=== PATIENT | female | born 1955 | race Caucasian/White ===

== ENCOUNTER 2018-12-09 06:08 | Inpatient (IN) ==
--- NOTE | 2018-11-19 13:44 | PAT Medication Instructions ---
Medication Instructions Date of Service November 19, 2018 Home Medications Cbd Oil 1,000 mg SUBLINGUAL BID ascorbic acid (vitamin C) [Vitamin C] 1 g PO DAILY aspirin 81 mg PO DAILY calcium carbonate-vitamin D3 [Calcium 600 + D(3)] 1 cap PO DAILY cyanocobalamin (vitamin B-12) 5,000 mcg PO DAILY gabapentin 600 mg PO Q4H PRN ibuprofen 800 mg PO TID PRN multivitamin 1 tab PO DAILY ondansetron 8 mg PO Q12H PRN pantoprazole [Protonix] 40 mg PO QAM potassium 99 mg PO DAILY propranolol 10 mg PO TID pyridoxine (vitamin B6) [Vitamin B-6] 25 mg PO DAILY tramadol [Ultram] 50 mg PO Q6H PRN ASK your surgeon for instructions ibuprofen 800 mg PO TID PRN DO NOT take the morning of surgery Cbd Oil 1,000 mg SUBLINGUAL BID ascorbic acid (vitamin C) [Vitamin C] 1 g PO DAILY calcium carbonate-vitamin D3 [Calcium 600 + D(3)] 1 cap PO DAILY cyanocobalamin (vitamin B-12) 5,000 mcg PO DAILY multivitamin 1 tab PO DAILY potassium 99 mg PO DAILY pyridoxine (vitamin B6) [Vitamin B-6] 25 mg PO DAILY Take morning of surgery With a small sip of water, OTHERWISE NOTHING TO EAT OR DRINK AFTER MIDNIGHT: aspirin 81 mg PO DAILY gabapentin 600 mg PO Q4H PRN (if needed) ondansetron 8 mg PO Q12H PRN (if needed) pantoprazole [Protonix] 40 mg PO QAM propranolol 10 mg PO TID tramadol [Ultram] 50 mg PO Q6H PRN (okay to take up to 4 hours prior to surgery if needed) Take evening before surgery Cbd Oil 1,000 mg SUBLINGUAL BID gabapentin 600 mg PO Q4H PRN (if needed) ondansetron 8 mg PO Q12H PRN (if needed) propranolol 10 mg PO TID tramadol [Ultram] 50 mg PO Q6H PRN (if needed) Other Notes If you have any questions please call us at [phone] or [phone] or [phone] or [phone]
--- NOTE | 2018-11-19 13:49 | Anesthesiology Consultation ---
Date of Service November 19, 2018 Assessment & Plan (1) Encounter for pre-operative examination: Preop EKG done 11/19/18 still unconfirmed at time of review. Will need to review confirmed EKG AM DOS. Chart Review Chart Review: Acceptable Risk for Surgery and Patient seen in Pre Admission Testing Teaching & Discussion Pre-Anesthesia Teaching/Discussion Notes: Instructed NPO after midnight before surgery,except medications with 15 cc of water. Medication instructions provid ed according to the PAT guidelines. History Surgery Operation Date: 12/09/18 07:45 Proposed Procedures p L3-S1 Decompression and Fusion with Spinal Cord Monitoring - Juan Manuel Gordon, Height/Weight Height: 5 ft 2 in Weight: 116.4 kg Allergies Allergy/AdvReac Type Severity Reaction Status Date / Time codeine Allergy Severe Anaphylaxis Verified 11/14/18 13:18 Medications Home Medications Medication Instructions Recorded Confirmed Last Taken Cbd Oil 1,000 mg SUBLINGUAL BID 11/14/18 11/14/18 Unknown ascorbic acid (vitamin C) [Vitamin 1 g PO DAILY 11/14/18 11/14/18 Unknown C] aspirin 81 mg PO DAILY 11/14/18 11/14/18 Unknown calcium carbonate-vitamin D3 1 cap PO DAILY 11/14/18 11/14/18 Unknown [Calcium 600 + D(3)] cyanocobalamin (vitamin B-12) 5,000 mcg PO DAILY 11/14/18 11/14/18 Unknown gabapentin 600 mg PO Q4H PRN 11/14/18 11/14/18 Unknown ibuprofen 800 mg PO TID PRN 11/14/18 11/14/18 Unknown multivitamin 1 tab PO DAILY 11/14/18 11/14/18 Unknown ondansetron 8 mg PO Q12H PRN 11/14/18 11/14/18 Unknown pantoprazole [Protonix] 40 mg PO QAM 11/14/18 11/14/18 Unknown potassium 99 mg PO DAILY 11/14/18 11/14/18 Unknown propranolol 10 mg PO TID 11/14/18 11/14/18 Unknown pyridoxine (vitamin B6) [Vitamin 25 mg PO DAILY 11/14/18 11/14/18 Unknown B-6] tramadol [Ultram] 50 mg PO Q6H PRN 11/14/18 11/14/18 Unknown Past Medical History Medical History Asthma STABLE Degenerative disc disease GERD (gastroesophageal reflux disease) CONTROLLED Migraine Morbid obesity Osteoarthritis Peripheral neuropathy Exercise / Class Metabolic Activity III < 4 Walking/Shop/Light housework Past Family History Family History Other No significant family history Past Surgical History Surgical History H/O hand surgery RT THUMB AND WRIST "ARTHROPLASTY" History of cataract surgery RT/LEFT History of section X 3 History of cholecystectomy History of hysterectomy History of tonsillectomy History of total knee replacement RT/LEFT History of vitrectomy RT Hx of eye surgery LASER RT/LEFT EYE "BLEEDING IN THE EYE" Tumor REMOVED FROM BACK (BENIGN) Past Anesthesia History No Hx of Anesthesia Complications and No Family Hx of Anesthesia Complications History of PONV No Hx of PONV and Hx of Motion Sickness Social History Smoking Status: Never smoker Do You Dip or Chew Tobacco: No Hx Alcohol Use: No Hx Substance Use: Yes (CBD oil sublingual BID) Review of Systems Reflux controlled. LBP with occasional LE radiculopathy/neuropathy. Patient denies chest pain, shortness of breath, cough, wheezing, palpitations. Physical Exam Vital Signs VITALS BP P 74 TEMP 98.2 SP02 95%RA RESP 20 PHYSICAL Full neck and c-spine range of motion. Full TMJ range of motion. TMD 3 finger breaths Mallampati Score 2 Dentition: upper front left missing tooth Lungs: clear throughout to auscultation Cardiac: regular rate and rhythm, no murmurs noted Spine: normal Carotid arteries: negative bruit Extremities: no edema Testing Laboratory Results 11/19/18 14:14 11/19/18 14:16 PT 9.8 Seconds (9.0-12.0) 11/19/18 14:14 INR 1.0 (0.9-1.1) 11/19/18 14:14 APTT 28.6 Seconds (21.0-31.0) 11/19/18 14:14 Urine Color Yellow 11/19/18 Unknown Urine Appearance Clear (Clear) 11/19/18 Unknown Urine pH 5.0 (4.5-7.5) 11/19/18 Unknown Ur Specific [place] 1.027 (1.000-1.030) 11/19/18 Unknown Urine Protein Negative (Negative) 11/19/18 Unknown Urine Glucose (UA) Negative (Negative) 11/19/18 Unknown Urine Ketones Negative (Negative) 11/19/18 Unknown Urine Nitrite Negative (Negative) 11/19/18 Unknown Ur Leukocyte Esterase Negative (Negative) 11/19/18 Unknown Urine WBC (Auto) 1-5 /hpf (0-5) 11/19/18 Unknown Urine RBC (Auto) >30 /hpf (0-4) H 11/19/18 Unknown U Hyaline Cast (Auto) 0 /lpf (0-5) 11/19/18 Unknown U Epithel Cells (Auto) >30 /lpf (0-5) H 11/19/18 Unknown Urine Bacteria (Auto) Negative (Negative) 11/19/18 Unknown Blood Type O Positive 11/19/18 14:14 Antibody Screen NEGATIVE 11/19/18 14:14 11/19/18 Unknown Urine Culture - Final Urine,Clean Catch More than three types of organisms present, all high counts mixed probable skin lindsey - No further identifications or sensitivities to follow. Electrocardiogram Date: 11/19/18 SR with first degree AVB at 78bpm. Otherwise "normal" EKG. (unconfirmed). Chest X-Ray Date: 11/19/18 Findings: + NAD
--- NOTE | 2018-11-19 14:49 | XRay Report ---
XR chest Pre-admission PA/Lat CLINICAL HISTORY: Preoperative evaluation. COMPARISON STUDY: No previous studies for comparison. FINDINGS: Lung volumes are normal. Lungs are clear. There is no pneumothorax or pleural effusion. Car diac size is normal. Mediastinal contours are normal. There is no evidence for pulmonary edema. IMPRESSION: No acute cardiopulmonary findings. Electronically signed by: Ronak Nichols M.D. 11/19/2018 2:48 PM
[2018-11-19 15:36] LABS: Basophils # (auto) 0.03 K/uL (0-0.2); Basophils % (auto) 0.4 %; Eosinophils # (auto) 0.11 K/uL (0-0.5); Eosinophils % (auto) 1.6 %; Hematocrit (blood only) 41.2 % (37-47); Hemoglobin 13.7 g/dL (12.0-16.0); Lymphocytes # (auto) 2.52 K/uL (1.2-3.4); Lymphocytes % (auto) 35.9 %; Mean Corpuscular Hgb Conc 33.3 g/dL (32-36); Mean Corpuscular Volume 90.2 fL (80-100); Mean Platelet Volume 10.7 fL (7.4-10.4); Monocytes # (auto) 0.52 K/uL (0.11-0.59); Monocytes % (auto) 7.4 %; Neutrophils # (auto) 3.83 K/uL (1.4-6.5); Neutrophils % (auto) 54.7 %; Platelet Count 245 K/uL (130-400); RDW Coefficient of Variation 14.2 % (11.5-14.5); RDW Standard Deviation 46.6 fL (36.4-46.3); Red Blood Count 4.57 M/uL (4.2-5.4); White Blood Count 7.01 K/uL (4.8-10.8)
[2018-11-19 15:45] LABS: BUN Creatinine Ratio 40.2 (10-20); Calcium 9.3 mg/dl (8.5-10.1); Creatinine Clr Calc Pharmacy 115.3 ml/min; Est GFR (African American) 112.8; Est GFR (Non-African American) 97.3; Potassium 4.2 mmol/L (3.5-5.1)
[2018-11-19 15:49] LABS: Partial Thromboplastin Ratio 1.1; Partial Thromboplastin Time 28.6 Seconds (21.0-31.0); Prothrombin Time 9.8 Seconds (9.0-12.0)
[2018-11-19 15:51] LABS: Appearance Urine Clear (Clear); Bacteria Urine Automated Negative (Negative); Bilirubin Urine Negative (Negative); Blood Urine 2+ (Negative); Cast Urine Automated 0 /lpf (0-5); Color Urine Yellow; Epithelial Cell Urine Auto >30 /lpf (0-5); Glucose Urine UA Negative (Negative); Ketones Urine Negative (Negative); Leukocyte Esterase Urine Negative (Negative); Nitrite Urine Negative (Negative); Protein Urine Negative (Negative); RBC Urine Automated >30 /hpf (0-4); Specific Gravity Urine 1.027 (1.000-1.030); Urobilinogen Urine Negative (Negative)
[~2018-12-09 06:08] MED LIST: ACETAMINOPHEN 500 MG TAB PO SCH; CEFAZOLIN 2000MG 2,000 MG/15 ML SYR IV SCH; CeleBREX 200 MG CAP PO SCH; GABAPENTIN 600 MG DOSE PO SCH; LR 15ML/HR IV SCH
[2018-12-09] MEDS ORDERED: BUPIVACAINE/EPINEPHRINE 0.5% MPF 1:200,000 30 ML VIAL ONE (06:56)
[2018-12-09] MEDS ORDERED: BACITRACIN INJ 50,000 UNIT VIAL ONE (06:57)
[2018-12-09] MEDS ORDERED: MIDAZOLAM HCL 1 MG/ML 2ML VIAL ONE (06:58)
[2018-12-09] MEDS ORDERED: LIDOCAINE HCL 2% 2 ML VIAL/AMP(20MG/ML) INFIL ONE (06:58)
[2018-12-09] MEDS ORDERED: GLYCOPYRROLATE 0.2 MG/ML VIAL ONE (06:58)
[2018-12-09] MEDS ORDERED: ONDANSETRON INJ 2 MG/ML 2 ML VIAL ONE (06:58)
[2018-12-09] MEDS ORDERED: DEXAMETHASONE SOD INJ 4 MG/ML VIAL ONE ×2 (06:58→08:12)
[2018-12-09] MEDS ORDERED: PROPOFOL IV EMULSION 10 MG/ML 20 ML VIAL IV ONE (06:58)
[2018-12-09] MEDS ORDERED: NEOSTIGMINE METHYLSULFATE 1 MG/ML 10ML VIAL ONE (06:58)
[2018-12-09] MEDS ORDERED: fentaNYL citrate 100 MCG/2 ML VIAL ONE (06:59)
[2018-12-09] MEDS ORDERED: LABETALOL HCL IV 5 MG/ML 20ML IV PRN (07:01)
[2018-12-09] MEDS ORDERED: ALBUTEROL 0.083% NEBU SOLN 3 ML VIAL INH PRN (07:01)
[2018-12-09] MEDS ORDERED: PROMETHAZINE HCL 12.5 MG in SODIUM CHLORIDE 0.9% 50 ML IV PRN ×2 (07:01→12:47)
[2018-12-09] MEDS ORDERED: ATROPINE SULFATE 0.1 MG/ML 10ML SYR IV PRN (07:01)
[2018-12-09] MEDS ORDERED: ONDANSETRON INJ 2 MG/ML 2 ML VIAL IV PRN (07:01)
--- NOTE | 2018-12-09 07:28 | History & Physical Bridge Note ---
Date of Service December 09, 2018 History & Physical Bridge Note I have examined the patient, reviewed the History & Physical and in the interval since the performance of the History & Physical I have noted the following changes of clinical significance: no changes noted
--- NOTE | 2018-12-09 07:30 | History & Physical Report ---
Date of Service December 09, 2018 Assessment & Plan (1) Spinal stenosis, lumbar region with neurogenic claudication: L3-S1 decompression and fusion Present on Admission?: Yes History of Present Illness Chief Complaint: Back and leg pain Primary Care Provider: Kristy Mueller This is a 63-year-old female who presents with chronic persistent back and leg pain. After failing extensive course of nonoperative care is here for surgical intervention. Allergies Allergy/AdvReac Type Severity Reaction Status Date / Time codeine Allergy Severe Anaphylaxis Verified 12/09/18 06:52 diclofenac [From [place]] Allergy Severe Palpitation Verified 12/09/18 06:56 s Home Medications Home Medications Medication Instructions Recorded Confirmed Type Cbd Oil 1,000 mg SUBLINGUAL BID 11/14/18 12/09/18 History ascorbic acid (vitamin C) [Vitamin 1 g PO DAILY 11/14/18 12/09/18 History C] aspirin 81 mg PO DAILY 11/14/18 12/09/18 History calcium carbonate-vitamin D3 1 cap PO DAILY 11/14/18 12/09/18 History [Calcium 600 + D(3)] cyanocobalamin (vitamin B-12) 5,000 mcg PO DAILY 11/14/18 12/09/18 History gabapentin 600 mg PO Q4H PRN 11/14/18 12/09/18 History ibuprofen 800 mg PO TID PRN 11/14/18 12/09/18 History multivitamin 1 tab PO DAILY 11/14/18 12/09/18 History ondansetron 8 mg PO Q12H PRN 11/14/18 12/09/18 History pantoprazole [Protonix] 40 mg PO QAM 11/14/18 12/09/18 History potassium 99 mg PO DAILY 11/14/18 12/09/18 History propranolol 10 mg PO TID 11/14/18 12/09/18 History pyridoxine (vitamin B6) [Vitamin 25 mg PO DAILY 11/14/18 12/09/18 History B-6] tramadol [Ultram] 50 mg PO Q6H PRN 11/14/18 12/09/18 History Past Med/Surg History Medical History Asthma STABLE Degenerative disc disease GERD (gastroesophageal reflux disease) CONTROLLED Migraine Morbid obesity Osteoarthritis Peripheral neuropathy Surgical History H/O hand surgery RT THUMB AND WRIST "ARTHROPLASTY" History of cataract surgery RT/LEFT History of section X 3 History of cholecystectomy History of hysterectomy History of tonsillectomy History of total knee replacement RT/LEFT History of vitrectomy RT Hx of eye surgery LASER RT/LEFT EYE "BLEEDING IN THE EYE" Tumor REMOVED FROM BACK (BENIGN) Family History Other No significant family history Social History Preferred Language: Luxembourgish Communication Ability: Effective Agricultural Scientist Required: No Beliefs That Will Affect Care: None Current Living Situation: Spouse Other Information That Helps Us Care for You: No Feels Safe at Home: Yes Safety Concerns: Feels Safe At This Time Smoking Status: Never smoker Do You Dip or Chew Tobacco: No Second Hand Exposure: No Tobacco Cessation Education Requested by Patient: No Hx Alcohol Use: No Hx Substance Use: Yes (CBD oil sublingual BID) substance use type: does not use Physical Exam Physical Exam: Patient is alert and oriented neurologically intact. Results & Data Vital Signs (Past 12 Hours) Vital Signs Temp Pulse Resp BP Pulse Ox 12/09/18 06:57 36.5 C 73 20 152/99 H 94
[2018-12-09] MEDS ORDERED: HYDROmorphone INJ 2 MG/ML SYR/VIAL ONE (08:13)
[2018-12-09] MEDS ORDERED: ePHEDrine sulfate 50 MG/ML SYR ONE (08:27)
[2018-12-09] MEDS ORDERED: PHENYLEPHRINE 100MCG/ML 5ML SYR ONE (08:27)
[2018-12-09] MEDS ORDERED: ROCURONIUM BROMIDE 10 MG/ML 5 ML VIAL ONE (08:49)
[2018-12-09] MEDS ORDERED: FLOSEAL HEMOSTATIC MATRIX 10ML TOP ONE (08:51)
[2018-12-09] MEDS ORDERED: ALBUMIN HUMAN 5% 12.5 GM/250 ML VIAL IV ONE (09:42)
--- NOTE | 2018-12-09 10:32 | Operative Report ---
Post Operative Report Pre & Post Diagnosis Operation Date: 12/09/18 07:45 Pre-Op Diagnosis: Spinal stenosis, lumbar region with neurogenic claudication Spondylolisthesis L4-5 L5-S1 Morbid obesity Post-Op Diagnosis: Same Procedure Operation Date: 12/09/18 07:45 Actual Procedures #1 lumbar decompression with bilateral medial facetectomies foraminotomies L2-3 L3-4 L4-5 L5-S1. #2 posterior spinal fusion L3-4 L4-5 L5-S1. #3 placement of posterior segmental instrumentation L3-4 L4-5 L5-S1. #4 interbody fusion L3-4 L4-5. #5 placement of titanium 12 x 22 mm cage at L3-4 and 10 x 22 mm cage at L4-5 per #6 placement of local autograft in the posterior lateral gutters. #7 placement infuse collagen sponge, master graft in the posterior gutters and ostial amp in the interbody space. Surgeon Juan Manuel Gordon, Assembler Surgical [employer]ment Dionne Leone Estimated Blood Loss 250 Findings See Below Patient is 5 foot 2 inches tall weighing 118 kg with a BMI excess of 47. The patient's body habitus added significant technical difficulty throughout the procedure requiring our largest retractors and longus instrumentations to perform the surgery. This added at least an additional 50% of operative time. Specimens None Indications This is a 63-year-old female that presents with above-mentioned diagnosis after failing extensive course of nonoperative care she like to undergo the above- mentioned procedure. Description of Procedure The patient was met with identified and informed consent obtained. She was then taken to the operative suite underwent intubation placed in the supine position the Tod table on top of the Luke frame. All bony prominences well-padded eyes inspected to ensure no external pressure placed upon the peer at this point the lumbar spine was prepped and draped in the normal sterile fashion. Sharp dissection with the assistance of Bovie cautery was performed down to and exposing the lamina and transverse processes of L3-L4-L5 and the sacral ala bilaterally. Obvious instability was noted. Then performed a complete laminectomy of L5 L4 L3 and partial laminectomy of L2 including bilateral medial facetectomies and foraminotomies addressing severe spinal stenosis. Pedicle screws were then placed in L3-L4-L5 and the sacral ala bilaterally. The appropriate size lot contoured and placed. By way of a transforaminal approach and left complete discectomy of L4-5 was performed in plate graded to subcortical being bone and a 10 x 22 mm titanium cage filled with ostium bone graft tapped in position. Then proceeded to L3-[address] of a transforaminal approach on the left complete discectomy performed in plate graded to subcortical bleeding bone and a 12 x 22 mm titanium cage filled with ostium bone graft tapped in position. The rods were then locked in final position. The transverse processes of L3-L4-L5 and the sacral ala bur to subcor tical bleeding bone. Infuse collagen sponge master graft local autograft placed in the posterior lateral gutters. 15 round SALTY drain inserted. The incision was then closed with 1 Vicryl fascia 2-0 Vicryl subcutaneous and 4 Monocryl for final skin closure. Steri-Strip sterile dressing placed. Patient will continue to PACU stable condition. Please note Dionne Leone present at the entire procedure involved in patient positioning complex portions of the surgery and final skin closure. Lastly spinal cord monitoring was utilized throughout the procedure no changes noted. I attest to the content of the Intraoperative Record and any orders documented therein. Any exceptions are noted below.
--- NOTE | 2018-12-09 10:35 | Fluoroscopy Report ---
FL lumbar spine 2-3V CLINICAL HISTORY: L3-S1 LUMBAR DECOMPRESSION AND FUSION COMPARISON STUDY: FLUOROSCOPY TIME: 35 seconds. NUMBER OF FLUOROSCOPIC IMAGES: 2 FINDINGS: 2 intraoperative fluoroscopic spot images reveal postsurgical changes of L3-4 and L4-5 disc ectomies and interbody fusions. There is an L3-S1 spinal fusion with posterior pedicle screw fixation . There is a grade 1 spondylolisthesis of L4 and L5 IMPRESSION: Intraoperative fluoroscopic spot images demonstrating postsurgical changes as described above Electronically signed by: James Rodriguez M.D. 12/09/2018 10:34 AM
[2018-12-09 10:38] LABS: iSTAT Creatinine 0.6 mg/dl (0.6-1.3); iSTAT Hemoglobin 11.6 g/dl (12.0-16.0); iSTAT Ionized Calcium 1.18 mmol/l (1.12-1.32); iSTAT Potassium 4.2 mEq/L (3.3-5.0)
[2018-12-09] MEDS: HYDROmorphone INJ 1 MG/ML SYRINGE IV PRN ×12 (11:06→12:03)
--- NOTE | 2018-12-09 12:14 | Anesthesiology Progress Note ---
Date of Service December 09, 2018 Anesthesia Post Procedure Vital Signs Vital Signs: Temp Pulse Pulse Resp BP Pulse Ox 12/09/18 12:05 74 16 126/79 96 12/09/18 11:55 36.4 C L 70 16 99/71 L 94 12/09/18 11:45 67 16 107/77 94 12/09/18 11:35 66 16 129/79 94 12/09/18 11:25 69 16 130/80 93 12/09/18 11:15 63 16 120/81 92 12/09/18 11:05 63 16 125/75 92 12/09/18 10:58 36.2 C L 63 16 137/80 95 12/09/18 06:57 36.5 C 73 20 152/99 H 94 Pain Intensity Lower Back: Pain Intensity: 6 Transfer of Care Handoff Completed per policy Notes Mental Status: alert / awake / arousable Patient Amnestic to Procedure: Yes Nausea / Vomiting: adequately controlled Pain: adequately controlled Airway Patency, RR, SpO2: stable & adequate BP & HR: stable & adequate Hydration State: stable & adequate Anesthetic Complications: no major complications apparent
[2018-12-09] MEDS ORDERED: SOD PHOSPHATE/SOD BIPHOSPHATE ENEMA 132 ML BTL PR PRN (12:47)
[2018-12-09] MEDS ORDERED: DO NOT ADMINISTER FLU VACCINE PRN (12:47)
[2018-12-09] MEDS ORDERED: BISACODYL 10 MG SUPP PR PRN (12:47)
[2018-12-09] MEDS ORDERED: MAGNESIUM HYDROXIDE SUSP 30 ML UDC PO PRN (12:47)
[2018-12-09] MEDS ORDERED: FAMOTIDINE 20 MG TAB PO PRN (12:47)
[2018-12-09] MEDS ORDERED: TRAMADOL HCL 50 MG TABLET PO PRN (12:47)
[2018-12-09] MEDS ORDERED: DO NOT ADMINISTER PNEUMOCOCCAL VACCINE PRN (12:47)
[2018-12-09] MEDS ORDERED: LORazepam 0.5 MG TAB PO PRN (12:47)
[2018-12-09] MEDS ORDERED: LORazepam 0.5 MG/1 ML VIAL IV PRN (12:47)
[2018-12-09] MEDS ORDERED: ACETAMINOPHEN 1,000 MG/100 ML VIAL IV PRN (12:47)
[2018-12-09] MEDS ORDERED: METOCLOPRAMIDE HCL INJ 5 MG/ML 2 ML VIAL IV PRN (12:47)
[2018-12-09] MEDS ORDERED: ALUMINUM/MAGNESIUM SUSP 30 ML UDC PO PRN (12:47)
[2018-12-09] MEDS: HYDROmorphone INJ 0.5 MG/0.5 ML SYR IV PRN ×3 (13:38→23:57)
[2018-12-09] MEDS: LACTATED RINGER'S 1,000 ML IV SCH ×2 (13:38→20:32)
[2018-12-09] MEDS: PROPRANOLOL HCL 10 MG TAB PO SCH ×2 (14:33→20:34)
[2018-12-09] MEDS: OXYCODONE HCL IR 5 MG TAB (IMMEDIATE RELEASE) PO PRN ×2 (15:53→21:21)
[2018-12-09] MEDS: CEFAZOLIN 2000MG 2,000 MG/15 ML SYR IV SCH ×2 (15:54→23:58)
[2018-12-09] MEDS: ONDANSETRON INJ 2 MG/ML 2 ML VIAL IV PRN (19:35)
[2018-12-09] MEDS: MEDICAL MARIJUANA PO SCH (20:34)
[2018-12-09] MEDS: DOCUSATE SODIUM/SENNA 50/8.6MG TAB PO SCH (20:34)
[2018-12-10] MEDS: LACTATED RINGER'S 1,000 ML IV SCH (02:27)
[2018-12-10] MEDS: ONDANSETRON INJ 2 MG/ML 2 ML VIAL IV PRN (02:27)
[2018-12-10] MEDS: POLYETHYLENE (MIRALAX) 17 GM PACK PO SCH ×4 (06:01→23:26)
[2018-12-10] MEDS: OXYCODONE HCL IR 5 MG TAB (IMMEDIATE RELEASE) PO PRN ×4 (06:05→21:16)
[2018-12-10 06:17] LABS: Basophils # (auto) 0.01 K/uL (0-0.2); Basophils % (auto) 0.1 %; Hematocrit (blood only) 30.9 % (37-47); Hemoglobin 10.2 g/dL (12.0-16.0); Immature Granulocytes # (auto) 0.04 K/uL (0.00-0.02); Immature Granulocytes % (auto) 0.3 %; Lymphocytes # (auto) 1.22 K/uL (1.2-3.4); Lymphocytes % (auto) 10.3 %; Mean Corpuscular Volume 90.4 fL (80-100); Mean Platelet Volume 10.1 fL (7.4-10.4); Monocytes # (auto) 0.75 K/uL (0.11-0.59); Monocytes % (auto) 6.4 %; Neutrophils # (auto) 9.78 K/uL (1.4-6.5); Neutrophils % (auto) 82.9 %; Platelet Count 243 K/uL (130-400); RDW Coefficient of Variation 14.5 % (11.5-14.5); RDW Standard Deviation 47.8 fL (36.4-46.3); Red Blood Count 3.42 M/uL (4.2-5.4)
[2018-12-10 06:46] LABS: BUN Creatinine Ratio 24.5 (10-20); Calcium 8.2 mg/dl (8.5-10.1); Est GFR (African American) 112.6; Est GFR (Non-African American) 97.2; Potassium 4.1 mmol/L (3.5-5.1)
--- NOTE | 2018-12-10 07:49 | Anesthesiology Progress Note ---
Date of Service December 10, 2018 Anesthesia Post Procedure Vital Signs Vital Signs: Temp Pulse Pulse Resp BP Pulse Ox 12/10/18 03:15 36.9 C 84 18 136/69 93 12/09/18 23:15 36.9 C 82 16 115/70 94 12/09/18 21:24 82 91 12/09/18 21:23 87 L 12/09/18 19:28 36.7 C 82 18 106/68 94 12/09/18 15:39 36.3 C L 72 16 101/66 92 12/09/18 14:31 36.4 C L 80 18 104/68 92 12/09/18 13:34 36.3 C L 62 17 100/64 96 12/09/18 13:00 36.4 C L 79 18 123/77 97 12/09/18 12:35 36.5 C 77 16 134/74 96 12/09/18 12:25 36.4 C L 71 16 127/71 96 12/09/18 12:15 36.4 C L 72 16 124/73 96 12/09/18 12:05 74 16 126/79 96 12/09/18 11:55 36.4 C L 70 16 99/71 L 94 12/09/18 11:45 67 16 107/77 94 12/09/18 11:35 66 16 129/79 94 12/09/18 11:25 69 16 130/80 93 12/09/18 11:15 63 16 120/81 92 12/09/18 11:05 63 16 125/75 92 12/09/18 10:58 36.2 C L 63 16 137/80 95 Pain Intensity Lower Back: Pain Intensity: 9 Notes Mental Status: alert / awake / arousable and participated in evaluation Patient Amnestic to Procedure: Yes Nausea / Vomiting: adequately controlled Pain: adequately controlled Airway Patency, RR, SpO2: stable & adequate BP & HR: stable & adequate Hydration State: stable & adequate Anesthetic Complications: no major complications apparent and Pt Satisfied with anesthetic care
[2018-12-10] MEDS: PROPRANOLOL HCL 10 MG TAB PO SCH ×3 (08:29→21:17)
[2018-12-10] MEDS: MEDICAL MARIJUANA PO SCH ×2 (08:40→21:19)
[2018-12-10] MEDS ORDERED: PANTOprazole 40 MG TAB PO SCH (09:00)
[2018-12-10] MEDS ORDERED: NON-FORMULARY MEDICATION (Potassium 99 MG) PO SCH (09:00)
[2018-12-10] MEDS: HYDROmorphone INJ 0.5 MG/0.5 ML SYR IV PRN (09:21)
[2018-12-10] MEDS: ASPIRIN 81 MG ECTAB PO SCH (09:23)
[2018-12-10] MEDS: ASCORBIC ACID 500 MG TAB PO SCH (09:23)
[2018-12-10] MEDS: PYRIDOXINE HCL 50 MG TAB PO SCH (09:23)
[2018-12-10] MEDS: CYANOCOBALAMIN (VITAMIN B-12) 2,500 MCG TAB.SUBL SL SCH (09:24)
[2018-12-10] MEDS: CALCIUM 600MG + VIT D 400 IU TAB PO SCH (09:24)
[2018-12-10] MEDS: MULTIVITAMIN TAB PO SCH (09:24)
--- NOTE | 2018-12-10 13:01 | Orthopedic Progress Note ---
Date of Service December 10, 2018 Assessment & Plan (1) Spinal stenosis, lumbar region with neurogenic claudication: This time we will continue to monitor her SALTY output and encourage physical therapy assess her progress of the next few days hopefully discharge home by the end of the week. Present on Admission?: Yes Subjective Patient's complaining of some back pain leg burning but improved from her pr eoperative status. Physical Exam Physical Exam: On exam she is in a chair. She is comfortable. [facility] testing. Results & Data Vital Signs (Past 12 Hours) Vital Signs Temp Pulse Resp BP Pulse Ox 12/10/18 11:50 36.7 C 79 18 129/76 95 12/10/18 08:33 36.7 C 87 18 112/72 94 12/10/18 07:27 93 12/10/18 03:15 36.9 C 84 18 136/69 93
[2018-12-10] MEDS: GABAPENTIN 600 MG TAB PO PRN ×3 (13:56→23:54)
[2018-12-10] MEDS: ACETAMINOPHEN 500 MG TAB PO PRN (13:56)
[2018-12-10] MEDS: DOCUSATE SODIUM/SENNA 50/8.6MG TAB PO SCH (21:17)
[2018-12-11] MEDS: LACTATED RINGER'S 1,000 ML IV SCH (00:22)
[2018-12-11] MEDS: OXYCODONE HCL IR 5 MG TAB (IMMEDIATE RELEASE) PO PRN ×5 (02:56→21:02)
[2018-12-11] MEDS: ACETAMINOPHEN 500 MG TAB PO PRN ×2 (02:56→13:49)
[2018-12-11] MEDS: PANTOprazole 40 MG TAB PO SCH (06:02)
[2018-12-11] MEDS: POLYETHYLENE (MIRALAX) 17 GM PACK PO SCH ×4 (06:03→23:21)
[2018-12-11] MEDS: PROPRANOLOL HCL 10 MG TAB PO SCH ×3 (06:03→21:02)
[2018-12-11] MEDS: GABAPENTIN 600 MG TAB PO PRN ×4 (06:07→22:43)
[2018-12-11] MEDS: MEDICAL MARIJUANA PO SCH ×2 (07:43→21:04)
[2018-12-11] MEDS: CALCIUM 600MG + VIT D 400 IU TAB PO SCH (07:45)
[2018-12-11] MEDS: ASPIRIN 81 MG ECTAB PO SCH (07:45)
[2018-12-11] MEDS: ASCORBIC ACID 500 MG TAB PO SCH (07:45)
[2018-12-11] MEDS: MULTIVITAMIN TAB PO SCH (07:45)
[2018-12-11] MEDS: PYRIDOXINE HCL 50 MG TAB PO SCH (07:45)
[2018-12-11] MEDS: CYANOCOBALAMIN (VITAMIN B-12) 2,500 MCG TAB.SUBL SL SCH (07:45)
--- NOTE | 2018-12-11 12:05 | Orthopedic Progress Note ---
Date of Service December 11, 2018 Assessment & Plan (1) Spinal stenosis, lumbar region with neurogenic claudication: Status post multilevel lumbar decompression fusion per plan at this time we will continue physical therapy output anticipate discharge home at the end of the week. Present on Admission?: Yes Subjective Patient's back pain is controlled leg symptoms improving. Physical Exam Physical Exam: Patient is in bed at this time having already undergone physical therapy she is good strength testing. Results & Data Vital Signs (Past 12 Hours) Vital Signs Temp Pulse Resp BP Pulse Ox 12/11/18 06:04 37.7 C H 88 16 95/56 L 92
[2018-12-11] MEDS: HYDROmorphone INJ 0.5 MG/0.5 ML SYR IV PRN ×2 (16:56→22:43)
[2018-12-11] MEDS: ONDANSETRON 4 MG TAB PO PRN (18:06)
[2018-12-11] MEDS: DOCUSATE SODIUM/SENNA 50/8.6MG TAB PO SCH (21:00)
[2018-12-12] MEDS: GABAPENTIN 600 MG TAB PO PRN ×2 (02:51→07:24)
[2018-12-12] MEDS: OXYCODONE HCL IR 5 MG TAB (IMMEDIATE RELEASE) PO PRN ×5 (05:31→21:57)
[2018-12-12] MEDS: POLYETHYLENE (MIRALAX) 17 GM PACK PO SCH ×3 (05:33→17:57)
[2018-12-12] MEDS: PANTOprazole 40 MG TAB PO SCH (06:16)
[2018-12-12] MEDS: PROPRANOLOL HCL 10 MG TAB PO SCH ×3 (06:16→21:57)
[2018-12-12] MEDS: ACETAMINOPHEN 500 MG TAB PO PRN ×2 (07:40→19:35)
[2018-12-12] MEDS: MEDICAL MARIJUANA PO SCH ×2 (07:41→21:51)
[2018-12-12] MEDS: CYANOCOBALAMIN (VITAMIN B-12) 2,500 MCG TAB.SUBL SL SCH (07:43)
[2018-12-12] MEDS: PYRIDOXINE HCL 50 MG TAB PO SCH (07:43)
[2018-12-12] MEDS: ASCORBIC ACID 500 MG TAB PO SCH (07:43)
[2018-12-12] MEDS: ASPIRIN 81 MG ECTAB PO SCH (07:44)
[2018-12-12] MEDS: MULTIVITAMIN TAB PO SCH (07:44)
[2018-12-12] MEDS: CALCIUM 600MG + VIT D 400 IU TAB PO SCH (07:44)
[2018-12-12] MEDS: GABAPENTIN 600 MG TAB PO SCH ×3 (12:00→19:28)
--- NOTE | 2018-12-12 12:15 | Orthopedic Progress Note ---
Date of Service December 12, 2018 Assessment & Plan (1) Spinal stenosis, lumbar region with neurogenic claudication: This time we will continue physical therapy monitor SALTY output anticipate discharge home tomorrow. Present on Admission?: Yes Subjective Patient's back pain is steadily improving. Leg pain improved. Physical Exam Physical Exam: Patient is good strength testing appears more comfortable today. Results & Data Vital Signs (Past 12 Hours) Vital Signs Temp Pulse Resp BP Pulse Ox 12/12/18 06:21 36.6 C 84 18 103/63 95
[2018-12-12] MEDS: ONDANSETRON INJ 2 MG/ML 2 ML VIAL IV PRN (13:26)
[2018-12-12] MEDS: DOCUSATE SODIUM/SENNA 50/8.6MG TAB PO SCH (21:57)
[2018-12-12] MEDS: ONDANSETRON 8MG OD TAB PO PRN (22:33)
[2018-12-13] MEDS: POLYETHYLENE (MIRALAX) 17 GM PACK PO SCH ×2 (00:14→05:58)
[2018-12-13] MEDS: GABAPENTIN 600 MG TAB PO SCH ×4 (00:14→12:26)
[2018-12-13] MEDS: OXYCODONE HCL IR 5 MG TAB (IMMEDIATE RELEASE) PO PRN ×2 (04:22→11:48)
[2018-12-13] MEDS: PROPRANOLOL HCL 10 MG TAB PO SCH (05:57)
[2018-12-13] MEDS: PANTOprazole 40 MG TAB PO SCH (05:58)
[2018-12-13] MEDS: ACETAMINOPHEN 500 MG TAB PO PRN (06:03)
[2018-12-13] MEDS: MEDICAL MARIJUANA PO SCH (08:03)
[2018-12-13] MEDS: ASCORBIC ACID 500 MG TAB PO SCH (08:03)
[2018-12-13] MEDS: PYRIDOXINE HCL 50 MG TAB PO SCH (08:03)
[2018-12-13] MEDS: CYANOCOBALAMIN (VITAMIN B-12) 2,500 MCG TAB.SUBL SL SCH (08:04)
[2018-12-13] MEDS: CALCIUM 600MG + VIT D 400 IU TAB PO SCH (08:04)
[2018-12-13] MEDS: ASPIRIN 81 MG ECTAB PO SCH (08:04)
[2018-12-13] MEDS: MULTIVITAMIN TAB PO SCH (08:04)
[2018-12-13] MEDS: ONDANSETRON 4 MG TAB PO PRN (08:33)
[2018-12-13] MEDS: ONDANSETRON 8MG OD TAB PO PRN (11:47)
--- NOTE | 2018-12-13 12:59 | Discharge Summary ---
Date of Service December 13, 2018 Admission HPI Per Admitting Provider This is a 63-year-old female who presents with chronic persistent back and leg pain. After failing extensive course of nonoperative care is here for surgical intervention. Principal Diagnosis Lumbar spinal stenosis with neurogenic claudication Discharge Data Allergies Allergy/AdvReac Type Severity Reaction Status Date / Time codeine Allergy Severe Anaphylaxis Verified 12/09/18 06:52 diclofenac [From [facility]] Allergy Severe Palpitation Verified 12/09/18 06:56 s Consultations 12/09/18 12:47 Consult Case Management - Discharge Planning Routine Procedures Performed Operation Date: 12/09/18 07:45 Actual Procedures p L3-S1 Decompression, Fusion, and Instrumentation, Interbody Fusion at L3-4 and L4-5, use of infuse and osteoamp, with Spinal Cord Monitoring - Juan Manuel Gordon DO Ordered Studies 12/09/18 07:45 FL fluoroscopy <1hr Routine FL lumbar spine 2-3V Routine Hospital Course (1) Spinal stenosis, lumbar region with neurogenic claudication: Patient underwent lumbar decompression fusion tolerated this well was taken to the orthopedic floor postoperatively. Postop day #1 she was up and ambulating progressed to postop day #2 and 3 SALTY drain decreasing appropriately. Pain becoming more controlled. Subsequently discharged home on postop day #4. Discharge orders and instructions from the chart for further review. Total Time Total Time Spent Total Time Spent (In Minutes): 30 minutes Discharge Plan Discharge Items Patient Disposition: Home - Self-Care Reason For Visit: Radiculopathy, Lumbar Region Discharge Diagnosis: Lumbar spinal stenosis with neurogenic claudication Discharge Goals: Improve function Activity: Per 'Additional Instructions' section Non-emergency contact: Primary Care Provider Call non-emergency contact if: you have any medication questions Follow-up/Referrals: Kristy Mueller D.O. [Primary Care Provider] - Diet: Regular Addtl Provider Instructions: ACTIVITY RECOMMENDATIONS: SELF CARE INSTRUCTIONS AFTER THORACIC/LUMBAR FUSIONS 1. You may walk to your tolerance. It is good exercise for your legs and back. Expect some back and intermittent leg aches and pains. 2. You may perform "counter-top" level activities (make a sandwich, avis with a project, etc.). 3. No bending or lifting of more than 10 pounds or back twisting of any nature (roll like a log when turning in bed). 4. You may ride in a car for 20-30 minutes at a time. No driving until after your first visit with your doctor. 5. Frequent changes of position and restricting sitting to 30 minutes at a time will help limit the amount of back spasms and stiffness you may experience. 6. You may discontinue the use of ambulatory aids (cane, crutches, etc.) once your strength and confidence allow. 7. You may blind installer the shower and let water strike your incision when you arrive home at least once daily. Do not take a tub bath, sit in a hot tub or go into a swimming pool until after your first recheck in the office. SPECIAL CARE INSTRUCTIONS: VERY IMPORTANT TO READ AND REVIEW A. Your surgical incision has been closed with a cosmetic suture under the skin that will dissolve in about 6 weeks. In 14 days, you can use a pair of clean scissors and cut the suture that is left outside of the skin at the ends of your incision. 1. The small skin tapes can be removed 7 days after surgery if they have not fallen off by that point. 2. You may keep the wound open to air as much as possible to promote healing after post-op day number 5 unless told otherwise by your doctor. 3. If you think the wound looks like it is becoming infected (redness or worsening drainage) and/or you are experiencing fever, chill or worsening back pain and muscle spasms, contact the office so that we may evaluate you as soon as possible. B. Complications are uncommon, but please contact us if you have any signs or symptoms of: 1. wound infection (fever higher than 102.5 degrees F, redness, separation of wound, drainage, or increasing pain from the incision) 2. blood clots in legs (pain, swelling, redness and warmth in legs) 3. urinary tract infection (fever higher than 102.5 degrees F, burning upon urination or increased frequency of urination) 4. nerve problems (inability to walk on your toes or heels, numbness, loss of bowel or bladder control) 5. any other symptoms that concern you C. Please call the office at if you have any concerns or questions about your operation or recovery. D. No smoking! Smoking drastically decreases the chance of a solid fusion. E. Do not take any anti-inflammatory medications (Indocin, Advil, Motrin, Aspirin, Naprosyn, etc.) as these may inhibit the chance of a solid fusion. Tylenol is okay to take for pain. MANAGING PAIN AFTER SPINAL SURGERY 1. Narcotic medication is intended for short-term use and will be provided for surgical pain. Surgical pain usually lasts for a period of 4-6 weeks. Narcotic medication includes Percocet, Vicodin, Darvocet, Tylenol #3 or Lortab. 2. Longer-term pain is more appropriately treated with non-narcotic medication such as Tylenol ES. 3. Muscle spasm is not appropriately treated with narcotics. Muscle relaxers such as Soma, Flexeril or Skelaxin can be used along with Tylenol ES. 4. Remember that we all live with some "aches and pains". This is not unusual or uncommon after an injury or as we get older. a. Back pain is expected and may include muscle spasms for 4 to 6 weeks after surgery. The pain should gradually improve. If the pain worsens for no apparent reason, please contact the office. b. Intermittent leg pain may also be experienced and should not be concerned about unless it worsens for no apparent reason. If so, please contact the office. 5. We will provide appropriate medication within the normal guidelines of their prescribed use. We will also be very cautious and aware of potential abuse and extended duration of patients' medication needs. a. Pain medications are for your comfort and to assist with sleep and rest so that the tissue can heal. They are not provided in order to return to normal activity and should not be used through the day. To do so or worsening pain at night can result from ongoing tissue damage and development of tolerance to the prescribed medicine. 6. Please allow 2-3 days to process refills. Prescriptions will not be mailed but must be picked up at the office. FOLLOW UP VISIT: Keep your scheduled follow-up appointment. Any questions, please call the office at . Prescriptions: New tramadol 50 mg Tablet 50 mg PO Q6H Qty: 30 RF: 0 oxycodone 5 mg Tablet 5 mg PO Q4H PRN (Reason: Pain, Severe) Qty: 30 RF: 0 Continued multivitamin Tablet 1 tab PO DAILY RF: 0 ascorbic acid (vitamin C) [Vitamin C] 1,000 mg Tablet 1 g PO DAILY RF: 0 gabapentin 600 mg Tablet 600 mg PO Q4H RF: 0 pyridoxine (vitamin B6) [Vitamin B-6] 25 mg Tablet 25 mg PO DAILY RF: 0 aspirin 81 mg Tablet,Delayed Release (Dr/Ec) 81 mg PO DAILY RF: 0 tramadol [Ultram] 50 mg Tablet 50 mg PO Q6H PRN (Reason: Pain) RF: 0 ondansetron 8 mg Tablet,Disintegrating 8 mg PO Q12H PRN (Reason: Nausea) RF: 0 propranolol 10 mg Tablet 10 mg PO TID RF: 0 potassium 99 mg Tablet 99 mg PO DAILY RF: 0 pantoprazole [Protonix] 40 mg Tablet,Delayed Release (Dr/Ec) 40 mg PO QAM RF: 0 Calcium 600 + D(3) 600 mg calcium- 200 unit Capsule 1 cap PO DAILY RF: 0 cyanocobalamin (vitamin B-12) 5,000 mcg Capsule 5,000 mcg PO DAILY RF: 0 Cbd Oil 1,000 mg sublingual BID RF: 0 Discontinued ibuprofen 800 mg Tablet 800 mg PO TID PRN (Reason: Pain) RF: 0 Stand-Alone Forms: [facility]/Other Patient Handouts: Surgery Prevent DVT After Discharge Orders: Discharge Order (Routine); Ordered 12/13/18 Ordered By: Juan Manuel Gordon Admission Data Admit Date/Time: 12/09/18 10:36 Attending Provider: Juan Manuel Gordon Admit Provider: Juan Manuel Gordon Primary Care Provider: Kristy Mueller Service: Surgical Services Other Interventions: Discharge Summary Assessment (RN) Last Done: 12/13/18 12:01
== END 2018-12-13 13:07 | disposition home or self-care (01) | DRG 454 ==
LOC: ASU 06:08 → 3E 10:36